=== PATIENT | female | born 1990 | race Two or more races ===

== ENCOUNTER 2021-07-09 08:39 | Outpatient (CLI) | payer OTHER | END 2021-07-09 09:39 | disposition home or self-care (01) | LOC: PRENATAL 08:39 | PROVIDERS: ATTEND Obstetrics & Gynecology Maternal & Fetal Medicine | DX: Z36.89 Encounter for other specified antenatal screening (principal); O36.80X2 Pregnancy with inconclusive fetal viability, fetus 2; Z3A.12 12 weeks gestation of pregnancy ==

== ENCOUNTER 2021-07-28 12:00 | Emergency (ER) | payer OTHER ==
[~2021-07-28] VITALS: Ht 157.5 cm; Wt 107.5 kg
[2021-07-28] MEDS ORDERED: ZITHROMAX500 MG PO (16:06)
== END 2021-07-28 17:58 | disposition home or self-care (01) ==
LOC: ER 12:00
DX: R51.9 Headache, unspecified (principal); O30.001 Twin pregnancy, unspecified number of placenta and unspecified number of amniotic sacs, first trimester; Z03.818 Encounter for observation for suspected exposure to other biological agents ruled out

== ENCOUNTER 2021-10-07 14:29 | Outpatient (CLI) | payer OTHER ==
[~2021-10-07 14:29] MED LIST: ZITHROMAX500 MG PO
== END 2021-10-07 16:25 | disposition home or self-care (01) ==
LOC: PRENATAL 14:29
PROVIDERS: ATTEND Obstetrics & Gynecology Maternal & Fetal Medicine
DX: O26.843 Uterine size-date discrepancy, third trimester (principal); O99.212 Obesity complicating pregnancy, second trimester; O44.02 Complete placenta previa NOS or without hemorrhage, second trimester; O26.852 Spotting complicating pregnancy, second trimester; O30.92 Multiple gestation, unspecified, second trimester; Z36.89 Encounter for other specified antenatal screening; Z3A.24 24 weeks gestation of pregnancy

== ENCOUNTER 2021-11-04 15:45 | Outpatient (CLI) | payer OTHER | END 2021-11-04 17:07 | disposition home or self-care (01) | LOC: PRENATAL 15:45 | PROVIDERS: ATTEND Obstetrics & Gynecology Maternal & Fetal Medicine | DX: O26.843 Uterine size-date discrepancy, third trimester (principal); O99.213 Obesity complicating pregnancy, third trimester; O30.93 Multiple gestation, unspecified, third trimester; Z36.89 Encounter for other specified antenatal screening; Z3A.28 28 weeks gestation of pregnancy ==

== ENCOUNTER 2021-11-10 22:25 | Outpatient (CLI) | payer OTHER | END 2021-11-11 10:41 | disposition home or self-care (01) | LOC: OBS/DEL 22:25 | PROVIDERS: ATTEND Obstetrics & Gynecology | DX: O60.03 Preterm labor without delivery, third trimester (principal); O98.513 Other viral diseases complicating pregnancy, third trimester; U07.1 COVID-19; Z3A.29 29 weeks gestation of pregnancy ==

== ENCOUNTER 2021-12-02 07:52 | Outpatient (CLI) | payer OTHER | END 2021-12-02 09:10 | disposition home or self-care (01) | LOC: PRENATAL 07:52 | PROVIDERS: ATTEND Obstetrics & Gynecology Maternal & Fetal Medicine | DX: O26.843 Uterine size-date discrepancy, third trimester (principal); O99.213 Obesity complicating pregnancy, third trimester; O36.8132 Decreased fetal movements, third trimester, fetus 2; Z36.89 Encounter for other specified antenatal screening; Z3A.32 32 weeks gestation of pregnancy ==

== ENCOUNTER 2021-12-05 09:36 | Inpatient (IN) | payer OTHER ==
[~2021-12-05] VITALS: Ht 157.5 cm; Wt 1.8 kg
[2021-12-05] MEDS ORDERED: PRENATAL CAPLE1 EAC1 PO (09:57)
[2021-12-05] MEDS ORDERED: FOLIC ACID20 MG PO (09:58)
== END 2021-12-15 09:51 | disposition home or self-care (01) | DRG 785 ==
LOC: OB/GYN 09:36 → LDR 09:36 → OB/GYN 12-06 10:11
PROVIDERS: ADMIT Obstetrics & Gynecology; ATTEND Obstetrics & Gynecology
PROC: 4A1HXFZ Monitoring of Products of Conception, Cardiac Rhythm, External Approach (ICD-10-PCS; 2021-12-05)
PROC: 0UB70ZZ Excision of Bilateral Fallopian Tubes, Open Approach (ICD-10-PCS; 2021-12-12)
PROC: 10D00Z1 Extraction of Products of Conception, Low, Open Approach (ICD-10-PCS; principal; 2021-12-12 07:00)
DX: O14.94 Unspecified pre-eclampsia, complicating childbirth (principal); O34.211 Maternal care for low transverse scar from previous cesarean delivery; O32.8XX2 Maternal care for other malpresentation of fetus, fetus 2; Z53.29 Procedure and treatment not carried out because of patient's decision for other reasons; Z30.2 Encounter for sterilization; O60.14X2 Preterm labor third trimester with preterm delivery third trimester, fetus 2; O60.14X1 Preterm labor third trimester with preterm delivery third trimester, fetus 1; O30.033 Twin pregnancy, monochorionic/diamniotic, third trimester; Z3A.33 33 weeks gestation of pregnancy; Z37.2 Twins, both liveborn